=== PATIENT | female | born 1970 | race Caucasian/White ===

== ENCOUNTER 2017-01-04 06:17 | Inpatient (IN) | payer OTHER ==
[~2017-01-04] VITALS: Ht 167.6 cm; Wt 135.9 kg
[~2017-01-04 06:17] MED LIST: CEL20 PO; FEMIRON20 MG PO; IBUPROFEN PO
--- NOTE | 2017-01-04 06:28 | NUR ---
EKG IN TRIAGE
--- NOTE | 2017-01-04 06:45 | NUR ---
PT TO ED VIA TRIAGE W/ C/O CP AND TINGLING TO LEFT SIDE OF CHEST AND BODY COMPLETE PER PT AT 0415 PT STATES SHE USED TO BE ON MEDS FOR HER HEART BUT WAS TAKEN OFF IN 2010, LAST MD VISIT 6-8 MONTHS AGO PT PLACED ON JEREL ON MONITOR MD AWARE AWAIT ORDERS AND DISPO
--- NOTE | 2017-01-04 07:04 | NUR ---
SL TO RIGHT AC LABS SENT
--- NOTE | 2017-01-04 07:04 | NUR ---
XRAY AT BEDSIDE AWAIT PT TO URINATE
[2017-01-04 07:09] LABS: BASOPHIL % 0.6 % (0-2); PLATELET COUNT 238 x10^3mcL (130-400); RED CELL DISTRIBUTION WIDTH 13.7 % (11.5-14.5)
[2017-01-04 07:18] LABS: CALCIUM 8.7 mg/dL (8.5-10.1); CHLORIDE SERUM 105 mmol/L (98-107); CREATININE SERUM 0.7 mg/dL (0.6-1.0); GFR1 > 60 mL/min; GLUCOSE SERUM 144 mg/dL (74-106); POTASSIUM SERUM 3.4 mmol/L (3.5-5.1); SODIUM SERUM 142 mmol/L (136-145)
[2017-01-04 07:25] LABS: ALBUMIN 3.6 g/dL (3.4-5.0); ALKALINE PHOSPHATASE 114 U/L (46-116); ALT/SGPT 268 U/L (14-59); AMYLASE 74 U/L (25-115); AST/SGOT 131 U/L (15-37); BILIRUBIN TOTAL 0.8 mg/dL (0.20-1.00); CHOLESTEROL 189 mg/dL (<200); HDL CHOLESTEROL 43 mg/dL (40-60); LIPASE 131 IU/L (73-393); TOTAL PROTEIN, SERUM 7.4 g/dL (6.4-8.2)
--- NOTE | 2017-01-04 07:29 | NUR ---
PT MEDICATED PER MD ORDER
[2017-01-04 07:40] LABS: microscopic required? NO
--- NOTE | 2017-01-04 07:40 | NUR ---
PT RESTING IN BED. EQUAL CHEST RISE AND FALL, NO DISTRESS NOTED. PT RECONNECTED TO CARDIORESP MONITORS AND PLACED ON OXYGEN PER ORDERS AND FOR PT COMFORT.
[2017-01-04 07:57] LABS: UA SPECIFIC GRAVITY <=1.005 (1.005-1.035); urine erythrocyte NEGATIVE (NEGATIVE)
--- NOTE | 2017-01-04 08:00 | NUR ---
US AT BEDSIDE.
[2017-01-04 08:03] LABS: AMPHETAMINE QUAL UR NONE DETECTED (NEG <=1000)
--- NOTE | 2017-01-04 09:50 | NUR ---
PT AMBULATED TO AND FROM BATHROOM WITH STEADY GAIT. PT RECONNECTED TO CARDIORESP MONITORS.
--- NOTE | 2017-01-04 10:36 | NUR ---
REPORT CALLED TO ANGELINA AWAD ON TELE UNIT TO ASSUME CARE OF PT POST TRANSFER.
[2017-01-04 11:58] VITALS: BP 109/44
--- NOTE | 2017-01-04 12:15 | NUR ---
RECIEVD PATIETN ALERT AND ORINETED TIMES FOUR. ALIRIO WIHT MULTIPLE TATOS TO [facility] BODY ADDENIES ANY OPEN WOUNDS. PATEIN TSTATES SHE DID NTO KNOW HSE HAS HEPATITIS AND PATIENT HAS NOT BEEN TREATEDCM FOR THIS PATIENT HAS BEEN WITH[facility] SHE HAD BEEN TEATED FOR HEART PROBLEMS IN THE PAST. THE DAD HAD HEART ISSUES AND IS IN ROOM 220 AT THIS TIME. SHE ALSO HAS DIABTES. WELL . LUIS MANUEL S STATED THAT THERE IS A LOT OF BREAST CANCER WELL LUPUS AND FRIBROMYALGIA IN THE FAMILY. PATIENT HAS BEEN GTIVEN TORADOL,. DECADRON AND ASA AND VALIUM IN TH EEMERGENCY ROOM. VITALS AT THIS TIME ARE 121/71, 90, 62, 20, 97% ON ROOM AIR.
[2017-01-04 12:57] LABS: T3 TOTAL 1.41 ng/mL
[2017-01-04 13:25] LABS: FREE T4 1.01 ng/dL (0.76-1.46); FREE THYROXINE INDEX 3.2 ug/dL (1.4-4.5); T4(THYROXINE) 10.1 ug/dL (4.7-13.3)
[2017-01-04 14:35] VITALS: BP 114/64
[2017-01-04 14:42] LABS: CHOLESTEROL/HDL RATIO 4.2; PHOSPHOROUS 3.7 mg/dL (2.5-4.9)
--- NOTE | 2017-01-04 16:28 | NUR ---
IV LEAKING PER THE PATIENT AND ATTEMPTED TO RESTARTED THE IV BUT UNABLE TO ACCESS AT THIS TIME. ADJUSTED THE OLD SITE AND NO LEAKING NOTED FOR NOW.
[2017-01-04 17:41] VITALS: BP 109/58
--- NOTE | 2017-01-04 18:52 | NUR ---
COMPLAINS OF CHEST PAIN VITALS AT THIS TIME AT 122/57. 86, 18, 100% . GAVE NITRO ORDERED. PATIENT ANXIOUS AND PLACED ON 02 AT 2 LITES AND REQUESTED SHE DEEP BREATH IN THE NOSE AND OUT THE MOUTH. PAGED THE INTERNS TIMES TWO AND THEY VIRGIL ENDORSE THE MANAGER ENVIRONMENTAL HEALTH. PATIENT IS NORMAL SINUS AND IS WITH VITALS STABLE AT THIS TIME.
--- NOTE | 2017-01-04 20:00 | NUR ---
RECEIVED PT IN BED AWAKE, ALERT AND ORIENTED. TELE #34 NSR ON THE MONITOR. TRACE EDEMA NOTED TO BLE. PULSES PALPABLE. WILL PROVIDE SCDS TO PATIENT. LUNGS CLEAR. BOWEL SOUNDS PRESENT. PT AMBULATES WITHOUT DIFFICULTY. SKIN INTACT. NO C/O PAIN NOTED AT THIS TIME. IV TO THE RAC, NO INFILTRATION NOTED. SEE HAND STONE POLISHER FOR FURTHER DETAILS. INSTRUCTED PT TO USE CALL LIGHT IF NEEDS ASSISTANCE WITH ANYTHING. CALL LIGHT IN REACH. WILL MONITOR.
[2017-01-04 21:47] VITALS: BP 103/56
--- NOTE | 2017-01-04 22:00 | NUR ---
PT IV LEAKING AND NEW IV STARTED IN THE RFA, INFUSING WELL. WILL MONITOR.
--- NOTE | 2017-01-05 00:30 | NUR ---
PT SLEEPING AT THIS TIME, NO DISTRESS NOTED. RESPIRATIONS EVEN AND UNLABORED. NO C/O PAIN AT THIS TIME. CALL LIGHT IN REACH. WILL MONITOR.
--- NOTE | 2017-01-05 05:21 | NUR ---
PT CONTINUES TO SLEEP AT THIS TIME, NO DISTRESS NOTED. PT HAS NO C/O PAIN NOTED. IV INFUSING WELL. PT IS STABLE AT THIS TIME, WILL ENDORSE TO THE A.M SHIFT NURSE.
[2017-01-05 06:13] VITALS: BP 112/54
[2017-01-05 07:00] LABS: ALBUMIN 3.4 g/dL (3.4-5.0); ALKALINE PHOSPHATASE 102 U/L (46-116); ALT/SGPT 222 U/L (14-59); AST/SGOT 66 U/L (15-37); BILIRUBIN TOTAL 0.78 mg/dL (0.20-1.00); CHLORIDE SERUM 108 mmol/L (98-107); CREATININE SERUM 0.7 mg/dL (0.6-1.0); GFR1 > 60 mL/min; GLUCOSE SERUM 112 mg/dL (74-106); SODIUM SERUM 141 mmol/L (136-145); TOTAL PROTEIN, SERUM 7.1 g/dL (6.4-8.2)
[2017-01-05 07:07] LABS: BASOPHIL % 0.3 % (0-2); PLATELET COUNT 263 x10^3mcL (130-400); RED CELL DISTRIBUTION WIDTH 13.8 % (11.5-14.5)
[2017-01-05 07:31] LABS: MAGNESIUM 2.2 mg/dL (1.8-2.4); PHOSPHOROUS 4.2 mg/dL (2.5-4.9)
--- NOTE | 2017-01-05 08:10 | NUR ---
RC'D PT SITTING IN BED WITH NO APPARENT SIGNS OF DISTRESS. A/A/O/X4, SPEECH CLEAR AND APPROPRIATE. ON TELE 34 WITH NSR. DENIES CHEST PAIN/PRESSURE. PALP PULSES, TRACE EDEMA ON BLE. RESPIRATIONS EQUAL AND UNLABORED BILAT. LUNGS CTA. DENIES SOB. ABDOMEN SOFT AND NONTENDER. ACTIVE BS. DENIES N/V. VOIDS FREELY, DENIES BURNING. AMBULATORY WITH BRP. SKIN W/D/I. DENIES PAIN AT THIS TIME. BED IN LOW POSITION. EDUCATED ON USING CALL LIGHT WHEN NEEDING ASSISTANCE. CALL LIGHT IN REACH. WILL CONTINUE TO MONITOR.
[2017-01-05 09:41] VITALS: BP 103/66
[2017-01-05] MEDS ORDERED: ECO81 PO (11:45)
[2017-01-05] MEDS ORDERED: LIPI10 PO (11:46)
[2017-01-05] MEDS ORDERED: PRI20 PO (11:46)
[2017-01-05 12:20] VITALS: BP 103/66
--- NOTE | 2017-01-05 12:27 | NUR ---
PATIENT CAME TO THE NURSE'S STATION IN [facility] TO GO HOME. REMOVED HER ID BAND ON HER ARM, UPSET AND HEARD CURSING.D/C INSTRUCTION GIVEN AND WENT HOME ACCOMPANIED BY JOSH
--- NOTE | 2017-01-05 13:58 | NUR ---
ECHO NOT COMPLETED PT. DISCHARGED
== END 2017-01-05 12:24 | disposition home or self-care (01) | DRG 243 ==
LOC: ED 06:17 → DU 10:18
PROVIDERS: Emergency Medicine; ADMIT Family Medicine
DX: K21.9 Gastro-esophageal reflux disease without esophagitis (principal); Z68.42 Body mass index [BMI] 45.0-49.9, adult; K76.0 Fatty (change of) liver, not elsewhere classified; M94.0 Chondrocostal junction syndrome [Tietze]; E66.01 Morbid (severe) obesity due to excess calories; E87.6 Hypokalemia; E11.9 Type 2 diabetes mellitus without complications; E78.5 Hyperlipidemia, unspecified; Z86.73 Personal history of transient ischemic attack (TIA), and cerebral infarction without residual deficits; B19.20 Unspecified viral hepatitis C without hepatic coma; Z83.3 Family history of diabetes mellitus; Z82.49 Family history of ischemic heart disease and other diseases of the circulatory system; Z80.3 Family history of malignant neoplasm of breast
CPT/HCPCS: 82962; 83880; 84439; G0480; J1100; J1885; J7030; Q0092

== ENCOUNTER 2017-11-17 18:16 | Emergency (ER) | payer SELFPAY ==
[~2017-11-17] VITALS: Ht 167.6 cm; Wt 104.3 kg
[~2017-11-17 18:16] MED LIST changes: +ECO81 PO; +LIPI10 PO; +PRI20 PO
[2017-11-17 18:31] VITALS: Ht 167.6 cm; Wt 104.3 kg
[2017-11-17 19:10] LABS: CALCIUM 8.9 mg/dL (8.5-10.1); CARBON DIOXIDE 28.9 mmol/L (21-32); CHLORIDE SERUM 106 mmol/L (98-107); CREATININE SERUM 0.7 mg/dL (0.6-1.0); GFR1 > 60 mL/min; GLUCOSE SERUM 98 mg/dL (74-106); POTASSIUM SERUM 3.7 mmol/L (3.5-5.1); SODIUM SERUM 141 mmol/L (136-145)
[2017-11-17 20:08] VITALS: BP 117/76
== END 2017-11-17 20:08 | disposition home or self-care (01) ==
LOC: ED 18:16
PROVIDERS: Emergency Medicine
DX: S86.811A Strain of other muscle(s) and tendon(s) at lower leg level, right leg, initial encounter (principal); I82.409 Acute embolism and thrombosis of unspecified deep veins of unspecified lower extremity; M79.661 Pain in right lower leg; M79.671 Pain in right foot; X58.XXXA Exposure to other specified factors, initial encounter; Y93.89 Activity, other specified; Y92.89 Other specified places as the place of occurrence of the external cause; Y99.8 Other external cause status
CPT/HCPCS: J1885; Q0092

== ENCOUNTER 2018-09-28 12:07 | Emergency (ER) | payer MEDICAID ==
[~2018-09-28] VITALS: Ht 167.6 cm; Wt 106.6 kg
[2018-09-28 12:18] VITALS: Ht 167.6 cm; Wt 106.6 kg
[2018-09-28 14:46] VITALS: BP 93/67
== END 2018-09-28 14:46 | disposition home or self-care (01) ==
LOC: ED 12:07
DX: B34.9 Viral infection, unspecified (principal); Z86.73 Personal history of transient ischemic attack (TIA), and cerebral infarction without residual deficits; Z86.19 Personal history of other infectious and parasitic diseases
CPT/HCPCS: J1885